=== PATIENT | male | born 1970 | race Two or more races ===

== ENCOUNTER 2024-02-04 06:19 | Day surgery (SDC) | payer BC, SELFPAY ==
[2024-02-03 06:37] VITALS: BMI 29.1
[2024-02-04] VITALS (10 sets, daily range): BP systolic 133–156; BP diastolic 77–92; BMI 29.1
[2024-02-04] MEDS: NORMOSOL-R 1000 IV (09:58)
[2024-02-04] MEDS: TYLENOL 1000 MG PO (09:58)
--- NOTE | 2024-02-09 13:02 | W.IMMPOSTOP ---
Surgical Immed Post Op Note
-
Delayed entry from 02/04/24
Primary Surgeon: Trupti
Supervisor [employer] Services: [employer]ais [employer]
Pre-op Diagnosis: Incarcerated umbilical hernia
Post-op Diagnosis: Same
Procedure Performed: Robot assisted laparoscopic repair of incarcerated umbilical hernia (rTAPP)
Anesthesia Type: GETA + TAP block
Specimen / Cultures: None
Estimated Blood Loss: 5cc
Complications: None immediate
Operative Findings: 2cm defect with incarcerated fat, 12cm x 12cm bard soft mesh
--- NOTE | 2024-02-09 13:04 | OR.RPT ---
Operative Report
Operative Report
Primary Surgeon: Trupti
Certified Surgical Technologist: Thais HE
Pre-op Diagnosis: Incarcerated umbilical hernia
Post-op Diagnosis: Same
Procedure Performed: Robot assisted laparoscopic repair of incarcerated umbilical hernia (rTAPP)
Anesthesia Type: GETA + TAP block
Specimen / Cultures: None
Estimated Blood Loss: 5cc
Complications: None immediate
Operative Findings: 2cm defect with incarcerated fat, 12cm x 12cm bard soft mesh
Date of Surgery:� 02/04/24
Indications:� This 53M developed�a symptomatic umbilical hernia. Repair was thus indicated and laparoscopic approach was elected.
Description of procedure:� The patient was taken to the operating room and the correct site of surgery was verified. General anesthesia was induced and the patient was placed supine on the operating table with arms tucked.� The patient�s abdomen was
prepped and draped in standard sterile fashion. A time-out was completed verifying correct patient, procedure, site, positioning, and implants and special equipment prior to beginning this procedure. A stab incision was made in the left upper
quadrant, a Veress needle was inserted and proper position was confirmed by aspiration and saline drop test. Following this, pneumoperitoneum was created with insufflation of carbon dioxide to 12 mmHg. Then a 8mm robotic trocar was inserted at the
left anterior axillary line at the level of the umbilicus. A laparoscope was inserted and the area of initial trocar entry and Veress needle placement were both inspected and free of trauma. Two 8mm trocars were then placed a hand's breadth above
and below the initial trocar under direct visualization. The peritoneum was incised at the falciform ligament and a flap was developed in transverse and caudad directions using blunt and sharp dissection. The umbilical defect measured as above. The
defect was closed with 0 PDS stratafix suture.� A 12 x 12cm piece of bard soft mesh was passed into the abdomen. The mesh was moved into position to lay flat against the abdominal wall, centered on the defect. The mesh was secured into place using
2-0 vicryl suture under the defect and at all four corners as well as retirement along each side.� A 2-0 monocryl stratafix was used to close the flap. A transversus abdominis plane block was performed under laparoscopic vision using
decadron/marcaine. After ensuring adequate hemostasis, the trocars were removed and the pneumoperitoneum allowed to escape. The trocar incisions were closed at the skin level using 4-0 monocryl and topical skin adhesive. The patient tolerated the
procedure well and was taken to the postanesthesia care unit in stable condition.
== END 2024-02-04 17:09 | disposition home or self-care (01) ==
LOC: SDS 06:19
PROVIDERS: ATTENDING PHYSICIAN Surgery; FAMILY PHYSICIAN Physician Assistant
DX: K42.0 Umbilical hernia with obstruction, without gangrene (principal)
CPT/HCPCS: 49592; 36415; 93005; C1781

== ENCOUNTER 2024-02-06 08:57 | Emergency (ER) | payer BC, SELFPAY ==
[2024-02-06 09:00] VITALS: BP 168/108
--- NOTE | 2024-02-06 09:11 | ED.GENMED ---
History of Present Illness
General
Chief Complaint: Post Operative Problem(s)
Source: patient and records
Time Seen by Provider: 02/06/24 09:05
Travel History
Have you had any contact with someone who has COVID-19?: No
Do you have any symptoms of coronavirus? Fever > 100 degrees, chills, cough, shortness of breath, sore throat, loss of taste or smell, muscle aches, or headache?: No
History of Present Illness
History of Present Illness:
53-year-old male status postumbilical hernia repair 2 days ago done at this facility presenting to the emergency department for evaluation of gradually worsening abdominal pain, nausea, feels as if he has to vomit but states he feels that he is too
much pain in his abdomen to do so and constipation. Patient states that he has been eating small amounts of food and drinking little sips of liquid but states he is concerned that since he has not had a bowel movement since surgery but he continues
to eat for possible obstructive process. Patient denies any fevers, chills, rigors, urinary symptoms, chest pain, shortness of breath or any other concerns. He states he was discharged home with oxycodone, Tylenol and ibuprofen which she has been
taking with minimal relief.
Past History
Past History
ED Past Medical History: HTN, Hypercholesterolemia, Hypothyroidism and Psychiatric
ED Past Surgical History: Other
Social History
Tobacco: Former smoker
Alcohol: Occasional
Drug: None
Personal: Single
Living: with family
Review of Systems
Review of Systems
All Other Systems: ROS reviewed and negative except as documented in HPI and ROS
Phy Exam
Physical Exam
Physical Exam:
GENERAL: Alert , in no apparent distress but does appear uncomfortable
EYE: clear conjunctiva b/l
HEAD: NCAT
ENT: o/p clr, mmm.
CARDIAC: Regular rate and rhythm .
LUNGS: Clear breath sounds bilaterally, no acute respiratory distress, no wheezes/rales/rhonchi
ABDOMEN: Firm but not rigid, feels slightly distended, tenderness most pronounced over the umbilicus. 3 small incisions over the left lateral portion of the abdomen remain closed and without any signs of infection, no r/g, no cvat
NEUROLOGICAL: Alert and oriented
SKIN: Warm and dry, skin intact.
MUSCULOSKELETAL: No edema, well perfused.
PSYCH: Normal and appropriate interaction.
Scores
Heart Failure Risk
Heart Failure Risk Score: Not Applicable
Heart Score for Chest Pain Patients
STEMI patient?: Not applicable
Withdrawal Assessment of Alcohol
Withdrawal Assessment Completed?: Not applicable
Course
Orders/Labs/Results
Orders:
Orders
02/06/24 09:10
0.9% Sodium Chloride 1000 ml [Nss] 1,000 ml IV BOLUS
Ketorolac [Toradol] 30 mg IV NOW STA
Ondansetron Injectable [Zofran] 4 mg IV NOW STA
CR Obstruct Series W/pa Chest Urgent
Comment:
Reason For Exam: s/p hernia repair, abd pain, N/V, constipation
02/06/24 09:40
Complete Blood Count/With Diff Urgent
Comprehensive Metabolic Panel Urgent
Lipase Urgent
02/06/24 11:03
Urinalysis Reflex To Culture Urgent
Date Specimen was Collected: 02/06/24
Time Specimen was Collected: 11:01
Abnormal Lab Results
02/06/24 02/06/24
09:40 11:03
Absolute Neuts (auto) 8.8 H 10^3/uL
(1.4-6.5)
Absolute Lymphs (auto) 1.0 L 10^3/uL
(1.2-3.4)
Absolute Monos (auto) 0.7 H 10^3/uL
(0.1-0.6)
Neutrophils % 83.2 H %
(42.2-75.2)
Lymphocytes % 9.6 L %
(20.5-51.1)
Glucose 112 H mg/dl
(70-99)
Urine Ketones 2+ A
(Negative)
02/06/24 09:40
02/06/24 09:40
Vital Signs
Initial and Last Documented VS:
Initial Vital Signs
Temp Pulse Resp BP Pulse Ox
97.8 F 94 18 168/108 97
02/06/24 09:00 02/06/24 09:00 02/06/24 09:00 02/06/24 09:00 02/06/24 09:00
Last Documented Vital Signs
Temp Pulse Resp BP Pulse Ox
97.8 F 80 18 155/96 95
02/06/24 09:00 02/06/24 10:45 02/06/24 09:00 02/06/24 09:27 02/06/24 12:30
MDM/Problems Addressed
Differential Diagnosis Includes:
Postoperative pain, postop obstruction, postoperative ileus
MDM/Problems Addressed:
53-year-old male presenting emergency department for evaluation after he had robotic assisted umbilical hernia surgery 2 days ago due to pain, nausea and inability to have a bowel movement. Patient also notes he has been much less flatulent over
the last 2 days. No fevers or signs of infection. Based off recent surgery ileus versus obstruction are certainly high on the differential. Due to patient's reported history of constipation will attempt to avoid narcotic medication as do not want
to worsen constipation so we will treat with Toradol, Zofran and IV fluids. Obstructive series ordered. Reassessment following.
*Radiology
Radiology exam reviewed: preliminary read by ED provider (Increased bowel gas pattern with possible ileus) and radiology read reviewed
*Pulse Oximetry
Patient hypoxic: no
*Critical Care Note
Total Time (30-74mins, 75-104mins- exclusive of procedures): Not Applicable
Data Reviewed
Review of Other/Old Records Reveals: Records
Source: patient and records
Patient Management
Escalation/DeEscalation of care consider admission/obs:
Patient's x-ray showed an increased bowel gas pattern with no obvious obstruction but a suspected ileus. Patient was able to tolerate p.o. in the emergency department without any vomiting and states symptoms are improved. Recommended clear diet
over the next few days. Patient is aware of return precautions to the emergency department. He has follow-up scheduled with Dr. Lyles on February 21.
ED Attending Note
-
Portions of this chart may have been created with voice recognition software.� Occasional wrong word or��sound alike� substitutions may have occurred due to the inherent limitations of voice recognition software.
Discharge Plan
Departure
Patient Disposition: Home (Routine Discharge)
Date of Disposition: 02/06/24
Time of Disposition: 12:36
Patient with high blood pressure during this ER visit?: Yes
Discharge Problem:
Adynamic ileus
Instructions: Postoperative Ileus (DC)
Prescriptions:
New
ondansetron 4 mg Tablet,Disintegrating
4 mg PO TIDPRN PRN (Reason: nausea/vomiting) Qty: 8 0RF
No Action
levothyroxine 175 mcg Tablet
175 mcg PO DAILY
lisinopril 40 mg Tablet
40 mg PO DAILY
rosuvastatin [Crestor] 10 mg Tablet
10 mg PO DAILY
oxycodone 5 mg tablet
5 - 10 mg PO Q4HPRN PRN (Reason: moderate to severe pain) Qty: 20 0RF
Referrals:
BRENDON WATKINS PA-C [Family Provider] -
Calvin Lyles MD [Active] -
Interventions
Interventions:
*ED COVID-19 Vaccine History Last Done: 02/06/24 09:00
Discharge Date and Time
Print Language: BURKINAN
[2024-02-06 09:27] VITALS: BP 155/96
[2024-02-06] MEDS: TORADOL 30 MG IV (09:29)
[2024-02-06] MEDS: ZOFRAN 4 MG IV (09:30)
[2024-02-06] MEDS: NSS 1000 IV (09:36)
[2024-02-06 09:45] LABS: % Basophils 0.4 % (0-2); % Eosinophils 0.1 % (0-6); % Immature Granulocytes 0.3 % (0-0.5); % Lymphocytes 9.6 % (20.5-51.1); % Monocytes 6.4 % (1.7-9.3); % Neutrophils 83.2 % (42.2-75.2); Absolute Monocytes 0.7 10^3/uL (0.1-0.6); Absolute Neutrophils 8.8 10^3/uL (1.4-6.5); Hematocrit 42.1 % (39.0-52.0); Hemoglobin 15.1 g/dL (13.0-18.0); Mean Corp Hgb Conc. 35.9 g/dL (33.0-37.0); Mean Corpuscular Hgb 29.5 pg (27.0-31.0); Mean Corpuscular Volume 82.2 fL (80.0-94.0); Mean Platelet Volume 9.1 fL (7.4-10.4); Nucleated Red Blood Cells % 0 % (-); Platelet Count 248 10^3/uL (130-400); Red Blood Cell Count 5.12 10^6/uL (4.70-6.10); White Blood Cell Count 10.5 10^3/uL (4.8-10.8)
[2024-02-06 10:00] LABS: ALT (SGPT) 24 U/L (0-50); AST (SGOT) 20 U/L (17-59); Albumin 4.7 g/dl (3.5-5.0); Alkaline Phosphatase 63 U/L (38-126); Blood Urea Nitrogen 16 mg/dl (9-20); Calcium 9.8 mg/dl (8.4-10.2); Carbon Dioxide 24 mmol/L (22-30); Chloride 103 mmol/L (98-107); Glucose 112 mg/dl (70-99); Lipase 53 U/L (23-300); Potassium 4.1 mmol/L (3.5-5.1); Sodium 136 mmol/L (135-145); Total Bilirubin 0.9 mg/dl (0.2-1.3); Total Protein 7.3 g/dl (6.3-8.2); eGFR > 60.00
[2024-02-06 11:08] LABS: Urine Albumin Negative (Neg - Trace); Urine Bilirubin Negative (Negative); Urine Character Clear (Clear); Urine Color Yellow; Urine Glucose Negative (Negative); Urine Ketone 2+ (Negative); Urine Leukocyte Negative (Negative); Urine Nitrite Negative (Negative); Urine Occult Blood Negative (Negative); Urine Urobilinogen Negative (Neg - 1+); Urine pH 6.5 (5.0-9.0)
== END 2024-02-06 12:58 | disposition home or self-care (01) ==
LOC: EMR 08:57
PROVIDERS: Physician Assistant Medical; EMERGENCY PHYSICIAN Emergency Medicine; FAMILY PHYSICIAN Physician Assistant
DX: R10.9 Unspecified abdominal pain (principal); K56.0 Paralytic ileus; R11.0 Nausea; G89.18 Other acute postprocedural pain; I10 Essential (primary) hypertension; E78.00 Pure hypercholesterolemia, unspecified; E03.9 Hypothyroidism, unspecified; Z98.890 Other specified postprocedural states; Z87.891 Personal history of nicotine dependence; Z88.2 Allergy status to sulfonamides
CPT/HCPCS: 99284; 96374; 96375; 96361; 74022; 80053; 81003; 83690; 85025